=== PATIENT | female | born 1980 | race Caucasian/White ===

== ENCOUNTER 2018-11-05 00:02 | Emergency (ER) | payer BC ==
[2018-11-05] MEDS ORDERED: NORMAL SALINE 1000 ML 1,000 ML IV ONE (00:33)
[2018-11-05] MEDS ORDERED: ONDANSETRON HCL INJ/PF 4 MG/2 ML SDV IV ONE (00:33)
--- NOTE | 2018-11-05 00:57 | ER Document Report ---
ED General - General Chief Complaint: Syncope Stated Complaint: SYNCOPE,NAUSEA,VOMITING Time Seen by Provider: 11/05/18 00:14 Notes: Patient is a 38-year-old female presents with complaints of syncopal episode. Patient says that she was getting up to use this bathroom. She went to the bathroom when she was going to shower and then passed out and hit her head on the sink. She says that her last 24 hours she has had intractable vomiting and has not been on anything down. Since falling and hitting her head she does have a headache. She denies abdominal pain. No chest pain. No fevers. Some diarrhea. No bloody stools. No other complaints at this time. No focal weakness or numbness. No chest pain. No shortness of breath. - Related Data Allergies/Adverse Reactions: acetaminophen [From Tylenol] Adverse Reaction (Verified 11/05/18 00:24) Past Medical History - Social History Smoking Status: Unknown if Ever Smoked Frequency of alcohol use: None Drug Abuse: None Family History: Reviewed & Not Pertinent Patient has suicidal ideation: No Patient has homicidal ideation: No - Past Medical History Cardiac Medical History: Reports: Hx Heart Attack - 06/21 Renal/ Medical History: Denies: Hx Peritoneal Dialysis Psychiatric Medical History: Reports: Hx Depression - and anxiety Review of Systems - Review of Systems Notes: My Normal Review Basic REVIEW OF SYSTEMS: CONSTITUTIONAL : Denies fever, chills, or sweats. Denies recent illness. EENT: Denies eye, ear, throat, or mouth pain or symptoms. Denies nasal or sinus congestion. CARDIOVASCULAR: Denies chest pain. RESPIRATORY: Denies cough, cold, or chest congestion. Denies shortness of breath, difficulty breathing, or wheezing. GASTROINTESTINAL: Denies abdominal pain. Vomiting GENITOURINARY: Denies difficulty urinating, painful urination, burning, frequency, or blood in urine. MUSCULOSKELETAL: Denies neck or back pain or joint pain or swelling. SKIN: Denies rash or skin lesions. HEMATOLOGIC : Denies easy bruising or bleeding. NEUROLOGICAL: Syncopal episode. Has a headache. Denies weakness or paralysis or loss of use of either side. Denies problems with gait or speech. Denies sensory or motor loss. ALL OTHER SYSTEMS REVIEWED AND NEGATIVE. Physical Exam - Vital signs Vitals: Temp 97.5 F 11/05/18 00:24 - Notes Notes: General Appearance: Well nourished, alert, cooperative, no acute distress, no obvious discomfort. Vitals: reviewed, See vital signs table. Head: Small hematoma to right forehead. Neck: Pain to palpation over cervical spine mainly over the C5-C6 region. No step-offs or deformities. Eyes: PERRL, EOMI, Conjuctiva clear Mouth: No decreasd moisture Lungs: No wheezing, No rales, No rhonci, No accessory muscle use, good air exchange bilaterally. Heart: Normal rate, Regular rythm, No murmur, no rub Abdomen: Normal BS, soft, No rigidity, No abdominal tenderness, No guarding, no rebound, no abdominal masses, no organomegaly Extremities: strength 5/5 in all extremities, good pulses in all extremities, no swelling or tenderness in the extremities, no edema. Skin: warm, dry, appropriate color, no rash Neuro: speech clear, oriented x 3, normal affect, responds appropriately to questions. Cranial nerves II through XII are intact. Distal sensation intact. Patient was all extremities without difficulty. Course - Re-evaluation Re-evalutation: 11/05/18 07:36 Patient is feeling improved after receiving IV fluids. She is no longer getting dizzy when she stands up. I feel that she is safe to be discharged home. I suspect that she probably had a single episode because she is likely volume depleted from all the vomiting she been having throughout the day. Her CT scan of her head is normal. CT scan of the spine did show some iatrogenic air. Otherwise the CT scan is normal. I feel that she is safe to be discharged home. She has no neurologic deficits on exam. I encouraged her return to ER immediately if she has trouble vomiting, fevers, recurrent passing out episodes, or if she feels unwell. Patient agrees with plan will be discharged home. Dictation of this chart was performed using voice recognition software; therefore, there may be some unintended grammatical errors. - Vital Signs Vital signs: Temp Pulse Resp BP Pulse Ox 97.4 F 71 16 102/62 100 11/05/18 05:00 11/05/18 02:39 11/05/18 05:00 11/05/18 05:00 11/05/18 05:00 - Laboratory Result Diagrams: 11/05/18 00:50 11/05/18 00:50 Laboratory results interpreted by me: 11/05/18 00:50 Total Protein 6.1 L - EKG Interpretation by Me Additional EKG results interpreted by me: 11/05/18 00:56 EKG is reviewed and interpreted by me. EKG shows sinus rhythm with a rate of [address] segment elevation or depression. No ischemic T wave inversions. WV interval, QRS duration, QT intervals are within normal range. No old EKG available for comparison. Discharge - Discharge Clinical Impression: Hematoma Syncope Qualifiers: Syncope type: unspecified Qualified Code(s): R55 - Syncope and collapse Vomiting Qualifiers: Vomiting type: unspecified Vomiting Intractability: non-intractable Nausea presence: with nausea Qualified Code(s): R11.2 - Nausea with vomiting, unspecified Condition: Good Disposition: HOME, SELF-CARE Additional Instructions: Please follow up with your doctor on Friday for reevaluation. I suspect you passed out due to being dehydrated from vomiting. Your blood work does not show any concerning abnormalities at this time. Please return to the ER immediately if you develop recurrent vomiting, fevers, chest pain, recurrent episode of passing out, or if you feel that you are worsening in any way.
[2018-11-05 00:58] LABS: ABSOLUTE BASOPHILS # (AUTO) 0.1 10^3/uL (0.0-0.2); ABSOLUTE LYMPHOCYTES (AUTO) 2.2 10^3/uL (0.5-4.7); ABSOLUTE MONOCYTES (AUTO) 0.6 10^3/uL (0.1-1.4); ABSOLUTE NEUT (AUTO) 6.2 10^3/uL (1.7-8.2); BASOPHILS % (AUTO) 0.8 % (0-2); EOSINOPHILS % (AUTO) 0.2 % (0-6); HEMATOCRIT 36.1 % (36.0-47.0); HEMOGLOBIN 12.3 g/dL (12.0-15.5); LYMPHOCYTES % (AUTO) 24.1 % (13-45); MEAN CORPUSCULAR HGB CONC 34.1 g/dL (32.0-36.0); MEAN CORPUSCULAR VOLUME 94 fl (80-97); MONOCYTES % (AUTO) 6.8 % (3-13); PLATELET COUNT 268 10^3/uL (150-450); RED BLOOD COUNT 3.85 10^6/uL (3.72-5.28); RED CELL DISTRIBUTION WIDTH 12.6 % (11.5-14.0); SEGMENTED NEUTROPHILS % (AUTO) 68.1 % (42-78); TOTAL CELLS COUNTED % (AUTO) 100 %; WHITE BLOOD COUNT 9.1 10^3/uL (4.0-10.5)
[2018-11-05 01:17] LABS: ALANINE AMINOTRANSFERASE 20 U/L (9-52); ALBUMIN 3.6 g/dL (3.5-5.0); ALKALINE PHOSPHATASE 66 U/L (38-126); ANION GAP 8 (5-19); ASPARTATE AMINO TRANSFERASE 18 U/L (14-36); BILIRUBIN,DIRECT 0.2 mg/dL (0.0-0.4); BILIRUBIN,TOTAL 0.6 mg/dL (0.2-1.3); BLOOD UREA NITROGEN 15 mg/dL (7-20); CALCIUM 9.1 mg/dL (8.4-10.2); CARBON DIOXIDE 25 mmol/L (22-30); CHLORIDE 105 mmol/L (98-107); GLUCOSE 110 mg/dL (75-110); POTASSIUM 3.6 mmol/L (3.6-5.0); TOTAL PROTEIN 6.1 g/dL (6.3-8.2)
--- NOTE | 2018-11-05 01:34 | RADIOLOGY REPORT (SQ) ---
EXAM DESCRIPTION: CT head without contrast CLINICAL HISTORY: 38 years Female; trauma TECHNIQUE: Noncontrast CT head. All CT scans at this facility use dose modulation, iterative reconstruction, and/or weight based dosing when appropriate to reduce radiation dose to as low as reasonably achievable. COMPARISON: None. FINDINGS: Griffith matter, white matter, ventricles, and cisterns are within normal limits. No acute hemorrhage or mass effect. Visualized portions of paranasal sinuses and mastoids are clear. Visualized portions of the calvarium are within normal limits. There are scattered small foci of air along the right upper cervical spine in the right facial soft tissues, likely venous air. No associated focal hematoma or edema. IMPRESSION: 1. No acute intracranial findings.
--- NOTE | 2018-11-05 01:34 | RADIOLOGY REPORT (SQ) ---
EXAM DESCRIPTION: CT CERVICAL SPINE WITHOUT IV CONTRAST COMPLETED DATE/TME: 11/05/2018 00:33 CLINICAL HISTORY: 38 years, Female, trauma COMPARISON: None. TECHNIQUE: 226 Images stored on PACS. All CT scanners at this facility use dose modulation, iterative reconstruction, and/or weight based dosing when appropriate to reduce radiation dose to as low as reasonably achievable (ALARA). [facility]: Dose Right [facility]: CareDose [facility]: Dose Right [facility]: Teradose 4D [facility]: [employer] LIMITATIONS: None. FINDINGS: Evaluation of spinal canal contents limited due to CT technique. However, vertebral body height and alignment is preserved. However, there is nonspecific soft tissue gas in the right neck and also involving the right vertebral foramen at the C2 and C3 levels. Etiology is indeterminate based on this exam as there is no associated acute osseous abnormality. The surrounding soft tissues are otherwise unremarkable. Findings could reflect antigenic air associated with vascular injection. Small amount of soft tissue gas is also seen in the submandibular regions bilaterally. The visualized lung apices are unremarkable. IMPRESSION: No acute C-spine abnormality. Nonspecific soft tissue gas, as above. This could be iatrogenic. TECHNICAL DOCUMENTATION: Quality ID # [id number]: Final reports with documentation of one or more dose reduction techniques (e.g., Automated exposure control, adjustment of the mA and/or kV according to patient size, use of iterative reconstruction technique) copyright 2011 [employer]- All Rights Reserved
[2018-11-05] MEDS ORDERED: RINGERS SOLUTION,LACTATED 1,000 ML IV ONE (03:00)
[2018-11-05] MEDS ORDERED: ONDANSETRON ODT 4 MG TAB (6 TAB/ER DISP) PO PRN (04:47)
[2018-11-05 05:06] VITALS: BP 102/62
--- NOTE | 2018-11-05 07:52 | EKG REPORT ---
SEVERITY:- NORMAL ECG - SINUS RHYTHM : Confirmed by: Enrique Galeana MD 05-Nov-2018 07:50:36
== END 2018-11-05 05:06 | disposition home or self-care (01) ==
LOC: ER 00:02
DX: S00.93XA Contusion of unspecified part of head, initial encounter (principal); R55 Syncope and collapse; R11.2 Nausea with vomiting, unspecified; W19.XXXA Unspecified fall, initial encounter; Y92.002 Bathroom of unspecified non-institutional (private) residence as the place of occurrence of the external cause
CPT/HCPCS: 93005; 99284; 96361; 96374; 36415; 84703; 85025; 80053; 84484; 70450; 72125; 93010; J2405; J7030; J7120